=== PATIENT | male | born 1935 | race Caucasian/White ===

== ENCOUNTER 2016-12-14 11:59 | Emergency (ER) | payer BC ==
[~2016-12-14] VITALS: Ht 157.5 cm; Wt 74.0 kg
[~2016-12-14 11:59] MED LIST: ASC500 PO; ASPI81TA3 PO; CHOL50009 PO; DUTA0.5C PO; LEVO100T82 PO; LOSA100T7 PO; METO25TA7 PO; RIVA20TA PO; SMV40T PO; TRIA1CAP56 PO
[2016-12-14 12:07] VITALS: Ht 157.5 cm; Wt 74.0 kg
[2016-12-14] MEDS ORDERED: LOSA50TA6 PO (12:40)
[2016-12-14] MEDS ORDERED: LEVO88TA3 PO (12:41)
[2016-12-14] MEDS ORDERED: METO-429 PO (12:41)
[2016-12-14] MEDS ORDERED: APIX2.5T PO (12:42)
[2016-12-14] MEDS ORDERED: DIGO125T19 PO (12:42)
[2016-12-14] MEDS ORDERED: FURO40TA4 PO (12:42)
[2016-12-14] MEDS ORDERED: MAGN400T28 PO (12:43)
[2016-12-14] MEDS ORDERED: SPIR25TA76 PO (12:43)
[2016-12-14] MEDS ORDERED: NIT4 SL (12:43)
[2016-12-14] MEDS ORDERED: TAMS0.4C2 PO (12:44)
[2016-12-14] MEDS ORDERED: IPRATROPIUM (NEB) 0.5 MG/2.5 ML AMP NEB STA (13:08)
[2016-12-14] MEDS ORDERED: ALBUTEROL 0.5% (NEB) 2.5 MG/0.5 ML AMP NEB STA (13:08)
--- NOTE | 2016-12-14 15:01 | RADRPT ---
PROCEDURE: XR Chest. CLINICAL INDICATION: Chest pain. TECHNIQUE: Single frontal chest x-ray. COMPARISON: None. FINDINGS: The lungs are clear of acute infiltrates, edema, effusions, or masses. Sternotomy wires are present. . There is enlargement of the cardiac silhouette with dextroposition of heart. Calcific atheroscl erosis of the aorta is present.. The osseous structures are intact. IMPRESSION: No acute cardiopulmonary disease. Cardiomegaly with dextroposition of the heart. Status post sternotomy. RPTAT: [facility] .Enrique Maria MD, Date Time Electronically viewed and signed by .Enrique Maria MD, on 12/14/2016 15:00 .L/
[2016-12-14] MEDS ORDERED: PRED20TA PO (15:32)
[2016-12-14] MEDS ORDERED: CIPR500T4 PO (15:32)
[2016-12-14] MEDS ORDERED: ALBU8.5H3 INH (15:32)
--- NOTE | 2016-12-14 15:41 | ERD ---
ER Documentation Chief Complaint Date/Time DATE: 12/14/16 TIME: 15:37 Chief Complaint urinary retention HPI This is an 81-year-old male who had a ventral hernia repair done 3 days ago. The patient has been having off-and-on urinary retention due to BPH throughout the course of his life. He states that he does do self catheterizations at times. He said he has been unable to urinate since last night and try to self catheterize himself but did not have any luck with urine output. He is complaining fullness to the bladder. Says he has a little blood coming out of the penis because of how hard he was trying to use the catheter. He has no back pain no vomiting no diarrhea he is having bowel movements. He is also having 7-10 days of a cough with occasional sputum production but no fever. No shortness of breath no chest pain ROS All systems reviewed and are negative except as per history of present illness. Medications Home Meds Active Scripts Prednisone* (Prednisone*) 20 Mg Tab, 60 MG PO DAILY for 5 Days, TAB Prov:TOSHA MAURICE DO 12/14/16 Albuterol Sulfate* (Proair HFA*) 8.5 Gm Hfa.aer.ad, 2 PUFF INH Q4, #1 INHALER Prov:TOSHA MAURICE DO 12/14/16 Ciprofloxacin Hcl* (Ciprofloxacin Hcl*) 500 Mg Tablet, 500 MG PO BID, #14 TAB Prov:TOSHA MAURICE DO 12/14/16 Reported Medications Tamsulosin Hcl* (Tamsulosin Hcl*) 0.4 Mg Cap.er.24h, 0.4 MG PO HS, CAP 12/14/16 Nitroglycerin* (Nitrostat*) 0.4 Mg Tab.subl, 0.4 MG SL Q5MIN Y for CHEST PAIN, BOTTLE 12/14/16 Magnesium Oxide* (Magnesium Oxide*) 400 Mg Tablet, 400 MG PO BID, TAB 12/14/16 Spironolactone* (Aldactone*) 25 Mg Tablet, 25 MG PO DAILY, #30 TAB 12/14/16 Apixaban* (Eliquis*) 2.5 Mg Tablet, 2.5 MG PO BID, TAB 12/14/16 Digoxin* (Digox*) 125 Mcg Tablet, 0.125 MG PO DAILY, TAB 12/14/16 Furosemide* (Furosemide*) 40 Mg Tablet, 40 MG PO BID, TAB 12/14/16 Metoprolol Tartrate* (Lopressor*) 50 Mg Tab, 50 MG PO BID, #60 TAB 12/14/16 Levothyroxine Sodium* (Levothyroxine Sodium*) 88 Mcg Tablet, 88 MCG PO BEFORE BREAKFAST, #30 TAB 12/14/16 Losartan Potassium* (Losartan Potassium*) 50 Mg Tablet, 50 MG PO DAILY, TAB 12/14/16 Cholecalciferol* (Vitamin D*) 5,000 Unit Tablet, 1000 UNIT PO DAILY, TAB 08/13/14 Ascorbic Acid (Vitamin C) 500 Mg Tab, 1000 MG PO DAILY, TAB 08/13/14 Dutasteride* (Avodart*) 0.5 Mg Capsule, 0.5 MG PO EVERY WEEK , CAP 08/13/14 Simvastatin (Simvastatin) 40 Mg Tablet, 40 MG PO HS, TAB 08/13/14 Discontinued Reported Medications Triamterene-HCTZ* (Dyazide*) 37.5-25 Mg Capsule, 1 CAP PO DAILY, CAP 03/22/16 Metoprolol Succinate* (Toprol XL*) 25 Mg Tab.sr.24h, 25 MG PO DAILY, #30 TAB 03/22/16 Rivaroxaban* (Xarelto*) 20 Mg Tablet, 20 MG PO WITH DINNER, TAB 03/22/16 Levothyroxine Sodium* (Levoxyl*) 100 Mcg Tablet, 100 MCG PO BEFORE BREAKFAST, # 30 TAB 03/22/16 Aspirin* (Aspirin* Chew) 81 Mg Tab.chew, 81 MG PO DAILY, TAB.CHEW 08/13/14 Losartan Potassium* (Losartan Potassium*) 100 Mg Tablet, 100 MG PO DAILY, TAB 08/13/14 Allergies Allergies: Coded Allergies: No Known Drug Allergies (Verified Allergy, Unknown, 12/14/16) PMhx/Soc History of Surgery: Yes (CABG, stent) Anesthesia Reaction: No Hx Neurological Disorder: No Hx Respiratory Disorders: No Hx Cardiac Disorders: Yes ([place], CAD) Hx Psychiatric Problems: No Hx Miscellaneous Medical Probl: Yes (PROSTRATE , HYPOTHYROID ) Hx Alcohol Use: No Hx Substance Use: No Hx Tobacco Use: Yes Smoking Status: Never smoker FmHx Family History: No coronary disease Physical Exam Vitals Vital Signs Date Time Temp Pulse Resp B/P Pulse Ox O2 Delivery O2 Flow Rate FiO2 12/14/16 13:30 67 18 95 21 12/14/16 12:07 97.5 82 18 176/90 99 Physical Exam Const: Well-developed, well-nourished Head: Atraumatic, normocephalic Eyes: Normal Conjunctiva, PERRLA, EOMI, normal sclera, no nystagmus ENT: Normal External Ears, Nose and Mouth, moist mucus membranes. Neck: Full range of motion. No meningismus, no lymphadenopathy. Resp: Bilateral diffuse rhonchi no increased work of breathing] Cardio: Regular rate and rhythm, no murmurs, S1 S2 present Abd: Soft, suprapubic tenderness and fullness, wound is clean dry and intact in the epigastric region, non distended. Normal bowel sounds, no guarding or rebound, no pulsitile abdominal masses or bruits Skin: No petechiae or rashes, no ecchymosis , no maculopapular rash Back: No midline or flank tenderness Ext: No cyanosis, or edema, FROM x 4, normal inspection, neurovascularly intact x 4 Neur: Awake and alert, STR 5/5 x 4, sensation intact x 4, no focal findings, cerebellum intact Psych: Normal Mood and Affect Results 24 hrs Current Medications Medications (Trade) Dose Ordered Sig/Geni Route PRN Reason Start Time Stop Time Status Last Admin Dose Admin Albuterol (Proventil 0.5% (Neb)) 7.5 mg ONCE STAT NEB 12/14/16 13:08 12/14/16 13:10 DC 12/14/16 13:29 Ipratropium [place] (Atrovent 0.02% (Neb)) 1.5 mg ONCE STAT NEB 12/14/16 13:08 12/14/16 13:10 DC 12/14/16 13:29 Procedures/MDM PROCEDURE: XR Chest. CLINICAL INDICATION: Chest pain. TECHNIQUE: Single frontal chest x-ray. COMPARISON: None. FINDINGS: The lungs are clear of acute infiltrates, edema, effusions, or masses. Sternotomy wires are present. . There is enlargement of the cardiac silhouette with dextroposition of heart. Calcific atherosclerosis of the aorta is present.. The osseous structures are intact. IMPRESSION: No acute cardiopulmonary disease. Cardiomegaly with dextroposition of the heart. Status post sternotomy. RPTAT: [facility] .Enrique Maria MD, Date Time Electronically viewed and signed by .Enrique Maria MD, MD on 12/14/2016 15:00 .L/ CC: TOSHA MAURICE DO Patient received breathing treatments and Solu-Medrol. Repeat oxygenation is 96 % on room air his lung sounds are much improved. There are clear. Luther catheter was placed in 1200 cc of urine output was obtained. The patient obtained immediate relief. A leg bag was placed on his leg. I will cover him with Cipro, Solu-Medrol and albuterol inhaler to cover the catheter and bronchitis. He will follow-up with his primary care on Friday Departure Diagnosis: Primary Impression: Urinary retention Additional Impression: Bronchitis Condition: Stable Patient Instructions: Bronchitis, Antiobiotic Treatment (Adult), Urinary Retention, Male TOSHA MAURICE DO Dec 14, 2016 15:40
[2016-12-14 15:52] VITALS: BP 156/82; PULSE 78; RESP 16; TEMP 98.1
== END 2016-12-14 15:53 | disposition home or self-care (01) ==
LOC: E/R 11:59
DX: R33.9 Retention of urine, unspecified (principal); J20.9 Acute bronchitis, unspecified; E03.9 Hypothyroidism, unspecified; I25.10 Atherosclerotic heart disease of native coronary artery without angina pectoris; R05 Cough; Z72.0 Tobacco use; Z95.1 Presence of aortocoronary bypass graft; Z95.5 Presence of coronary angioplasty implant and graft
CPT/HCPCS: 71010; 94664

== ENCOUNTER → 2017-04-23 | Outpatient (CLI) | payer BC ==
[~2017-04-23] MED LIST changes: +ALBU8.5H3 INH; +APIX2.5T PO; -ASPI81TA3 PO; +CIPR500T4 PO; +DIGO125T19 PO; +FURO40TA4 PO; -LEVO100T82 PO; +LEVO88TA3 PO; -LOSA100T7 PO; +LOSA50TA6 PO; +MAGN400T28 PO; +METO-429 PO; -METO25TA7 PO; +NIT4 SL; +PRED20TA PO; -RIVA20TA PO; +SPIR25TA PO; +TAMS0.4C2 PO; -TRIA1CAP56 PO
--- NOTE | 2017-04-23 14:30 | RADRPT ---
PROCEDURE: US Abdominal Aorta. CLINICAL INDICATION: AAA screening. Back pain. TECHNIQUE: Transabdominal ultrasound of the aorta was performed with sagittal and transverse imagi ng as well as color and Doppler interrogation. COMPARISON: 07/19/2016 FINDINGS: The proximal aorta measures 3.1 cm in diameter. Mid aorta measures 1.8 cm in dimension. The distal aorta measures 3.3 cm in dimension. The proximal iliac arteries are unremarkable. There is normal blood flow throughout. Mild plaque formation is seen within the aorta. IMPRESSION: 1. Mild the suprarenal abdominal aortic aneurysm measuring 3.1 cm, previously 2.7 cm. 2. Mild infrarenal abdominal aortic aneurysm of distal aorta measuring 3.3 cm, unchanged. RPTAT: QQ .Harjeet Watkins MD, Date Time Electronically viewed and signed by .Harjeet Watkins MD, on 04/23/2017 14:30 .M/
== END | disposition home or self-care (01) ==
LOC: U/S 11:51
PROVIDERS: ATTEND Internal Medicine Pulmonary Disease
DX: I71.4 Abdominal aortic aneurysm, without rupture (principal); M54.9 Dorsalgia, unspecified
CPT/HCPCS: 76775